=== PATIENT | female | born 1995 | race African-American/Black ===

== ENCOUNTER 2025-05-03 14:48 | Emergency (ER) | payer MEDICAID ==
[~2025-05-03] VITALS: Ht 170.2 cm; Wt 100.0 kg
[2025-05-03 14:50] VITALS: TEMP 36.9; O2SAT 100
[2025-05-03] MEDS ORDERED: AMOX1TAB16 MT (15:43)
[2025-05-03 16:18] VITALS: BP 117/64; PULSE 70; RESP 18
[2025-05-03] MEDS: IBUPROFEN 400MG TABLET PO ONE (16:18)
[2025-05-03] MEDS ORDERED: ACET-2708 MT (17:34)
[2025-05-03] MEDS: AMOXICILLIN/POTASSIUM CLAVULANATE 875/125MG TAB PO ONE (18:02)
== END 2025-05-03 18:11 | disposition home or self-care (01) ==
LOC: ER 14:48
DX: K04.7 Periapical abscess without sinus (principal); Z79.899 Other long term (current) drug therapy
CPT/HCPCS: 81025; 99283